=== PATIENT | female | born 1960 | race African-American/Black ===

== ENCOUNTER 2025-03-18 09:37 | Emergency (ER) | payer SELFPAY ==
[~2025-03-18] VITALS: Ht 180.3 cm; Wt 88.0 kg
[2025-03-18 10:25] VITALS: PULSE 68; RESP 20; TEMP 98.7; O2SAT 95
[2025-03-18] MEDS ORDERED: AZITHROMYCIN250 MG PO (10:51)
[2025-03-18] MEDS ORDERED: CORICIDIN HBP1 EAC1 PO (10:51)
== END 2025-03-18 11:04 | disposition home or self-care (01) ==
LOC: FSED 09:45
DX: R05.9 Cough, unspecified (principal); J40 Bronchitis, not specified as acute or chronic; J06.9 Acute upper respiratory infection, unspecified; I10 Essential (primary) hypertension; Z11.52 Encounter for screening for COVID-19
CPT/HCPCS: 0223U; 71046; 83518; 87400; 99284